=== PATIENT | female | born 1985 | race Caucasian/White ===

== ENCOUNTER 2017-07-24 14:33 | Observation (INO) | payer BC, OTHER ==
[~2017-07-24 14:33] MED LIST: ALPR0.5T PO
[2017-07-24 15:59] LABS: APPEARANCE,URINE Clear (CLEAR); BILIRUBIN,URINE Negative (NEGATIVE); COLOR,URINE Yellow (YELLOW); GLUCOSE, URINE (UA) Negative (NEGATIVE); KETONES,URINE Negative (NEGATIVE); LEUKOCYTE ESTERASE ,URINE Negative (NEGATIVE); NITRATE,URINE Negative (NEGATIVE); OCCULT BLOOD,URINE Negative (NEGATIVE); PH,URINE 7.5 (5.0-8.0); PROTEIN,URINE Negative (NEGATIVE); UROBILINOGEN,URINE 0.2 mg/dL (0.2-1.0)
== END 2017-07-24 16:40 | disposition home or self-care (01) ==
LOC: EDH 14:33 → LDH 15:10
PROVIDERS: ADMIT Obstetrics & Gynecology; ATTEND Obstetrics & Gynecology
DX: O42.913 Preterm premature rupture of membranes, unspecified as to length of time between rupture and onset of labor, third trimester (principal); Z3A.30 30 weeks gestation of pregnancy
CPT/HCPCS: 81003; 82120; 99285; G0378

== ENCOUNTER 2017-08-27 20:24 | Observation (INO) | payer BC ==
[~2017-08-27] VITALS: Ht 149.9 cm; Wt 91.2 kg
[2017-08-27] MEDS ORDERED: PREN-196 PO (20:38)
[2017-08-27] MEDS ORDERED: LACTATED RINGERS 1000ML 1,000 ML IV SCH (20:45)
[2017-08-27 20:59] LABS: APPEARANCE,URINE Clear (CLEAR); BILIRUBIN,URINE Negative (NEGATIVE); COLOR,URINE Yellow (YELLOW); GLUCOSE, URINE (UA) Negative (NEGATIVE); KETONES,URINE Negative (NEGATIVE); LEUKOCYTE ESTERASE ,URINE Trace (NEGATIVE); NITRATE,URINE Negative (NEGATIVE); OCCULT BLOOD,URINE Negative (NEGATIVE); PH,URINE 6.5 (5.0-8.0); PROTEIN,URINE Negative (NEGATIVE); UROBILINOGEN,URINE 0.2 mg/dL (0.2-1.0)
[2017-08-27 21:09] LABS: BACTERIA,URINE Few /HPF (None Seen); RBC,URINE 0-1 /HPF (0-1); SQUAMOUS EPITHELIAL CELL,UR 0-2 /HPF (0-2); WBC,URINE 0-1 /HPF (0-1)
[2017-08-27] MEDS ORDERED: AUD IH (21:15)
[2017-08-27 21:41] LABS: AMPHET/METH SCREEN,URINE NEGATIVE (NEGATIVE); BARBITURATE SCREEN, URINE NEGATIVE (NEGATIVE); BENZODIAZEPINES SCREEN,URINE NEGATIVE (NEGATIVE); CANNABINOID SCREEN,URINE NEGATIVE (NEGATIVE); COCAINE SCREEN,URINE NEGATIVE (NEGATIVE); OPIATE SCREEN,URINE NEGATIVE (NEGATIVE); PHENCYCLIDINE SCREEN,URINE NEGATIVE (NEGATIVE)
== END 2017-08-27 22:50 | disposition home or self-care (01) ==
LOC: EDH 20:24 → LDH 20:25
PROVIDERS: ADMIT Obstetrics & Gynecology; ATTEND Obstetrics & Gynecology
DX: O62.9 Abnormality of forces of labor, unspecified (principal); Z3A.35 35 weeks gestation of pregnancy
CPT/HCPCS: 80305; 81001; 96360; 96361; 99285; G0378 ×2; J7120

== ENCOUNTER 2021-10-14 00:13 | Emergency (ER) | payer OTHER ==
[~2021-10-14] VITALS: Ht 149.9 cm; Wt 51.7 kg
[~2021-10-14 00:13] MED LIST changes: +AUD IH; +PREN-196 PO
[2021-10-14 00:36] VITALS: BP 116/82
[2021-10-14] MEDS ORDERED: MUPI22OI2 TP (00:55)
[2021-10-14] MEDS ORDERED: MUPIROCIN OINTMENT 22 GM TUBE TP SCH (01:00)
[2021-10-14] MEDS ORDERED: ACETAMINOPHEN 500 MG TABLET PO ONE (01:00)
[2021-10-14] MEDS ORDERED: LORAZEPAM 1 MG TABLET PO ONE (01:00)
[2021-10-14] MEDS ORDERED: ACETAMINOPHEN 500 MG TABLET ONE (01:02)
== END 2021-10-14 01:56 | disposition home or self-care (01) ==
LOC: EDH 00:13
DX: T63.301A Toxic effect of unspecified spider venom, accidental (unintentional), initial encounter (principal); F41.9 Anxiety disorder, unspecified; J45.909 Unspecified asthma, uncomplicated; F17.200 Nicotine dependence, unspecified, uncomplicated; Z88.6 Allergy status to analgesic agent; Y92.89 Other specified places as the place of occurrence of the external cause

== ENCOUNTER 2022-04-02 22:26 | Emergency (ER) | payer OTHER ==
[~2022-04-02] VITALS: Ht 149.9 cm; Wt 52.2 kg
[~2022-04-02 22:26] MED LIST changes: +MUPI22OI2 TP
[2022-04-02 22:28] VITALS: BP 105/68
[2022-04-02] MEDS ORDERED: PERM60CR4 TP (23:24)
[2022-04-03] MEDS ORDERED: ACET-66 PO (09:33)
== END 2022-04-02 23:42 | disposition home or self-care (01) ==
LOC: EDH 22:26
DX: B86 Scabies (principal); J45.909 Unspecified asthma, uncomplicated; F17.200 Nicotine dependence, unspecified, uncomplicated; Z88.6 Allergy status to analgesic agent; Z98.890 Other specified postprocedural states; Z79.899 Other long term (current) drug therapy
CPT/HCPCS: 99282

== ENCOUNTER 2022-04-03 05:41 | Emergency (ER) | payer BC, OTHER ==
[~2022-04-03] VITALS: Ht 149.9 cm; Wt 54.4 kg
[~2022-04-03 05:41] MED LIST changes: +PERM60CR4 TP
[2022-04-03 06:54] LABS: AMPHET/METH SCREEN,URINE POSITIVE (NEGATIVE); BARBITURATE SCREEN, URINE NEGATIVE (NEGATIVE); BENZODIAZEPINES SCREEN,URINE NEGATIVE (NEGATIVE); CANNABINOID SCREEN,URINE NEGATIVE (NEGATIVE); COCAINE SCREEN,URINE POSITIVE (NEGATIVE); OPIATE SCREEN,URINE NEGATIVE (NEGATIVE); PHENCYCLIDINE SCREEN,URINE NEGATIVE (NEGATIVE)
[2022-04-03 06:57] LABS: BASOPHILS % (AUTO) 0.5 % (0.0-5.0); EOSINOPHILS % (AUTO) 4.9 % (0.0-8.0); HEMATOCRIT 36.1 % (36-48); LYMPHOCYTES % (AUTO) 29.2 % (21.0-51.0); MEAN CORPUSCULAR HEMOGLOBIN 30.2 pg (27.0-33.0); MEAN CORPUSCULAR HGB CONC 33.5 g/dL (32.0-36.0); NEUTROPHILS % (AUTO) 56.2 % (40.0-77.0); PLATELET COUNT (AUTO) 304 K/uL (130-400); RED BLOOD CELL COUNT(AUTO) 4.01 MIL/uL (4.00-5.50); RED CELL DISTRIBUTION WIDTH 12.7 % (11.0-15.5); WHITE BLOOD COUNT (AUTO) 9.6 K/uL (4.8-10.8)
[2022-04-03 07:05] VITALS: BP 126/76
[2022-04-03 07:16] LABS: ALANINE AMINOTRANSFERASE 16 U/L (12-78); ALBUMIN 3.7 g/dL (3.5-5.0); ASPARTATE AMINOTRANSFERASE 13 U/L (10-37); CARBON DIOXIDE 29 mmol/L (21-32); CHLORIDE 100 mmol/L (101-111); CREATININE 0.7 mg/dL (0.5-1.5); GLOMERULAR FILTR. RATE CALC 101 mL/min (>60); GLUCOSE,RANDOM 97 mg/dL (70-105); POTASSIUM 3.3 mmol/L (3.5-5.1); SODIUM SERUM 134 mmol/L (136-145); TOTAL PROTEIN, SERUM 6.9 g/dL (6.0-8.3); UREA NITROGEN, BLOOD 12 mg/dL (7-18)
[2022-04-03 07:55] LABS: ALCOHOL, BLOOD < 3 mg/dL (0-10)
[2022-04-03] MEDS ORDERED: KETOROLAC 60 MG VIAL (30MG/ML) IM ONE (08:00)
[2022-04-03] MEDS ORDERED: ACETAMINOPHEN 500 MG TABLET PO ONE (08:30)
[2022-04-03] MEDS ORDERED: ACET-66 PO (09:33)
== END 2022-04-03 09:55 | disposition home or self-care (01) ==
LOC: EDH 05:41
DX: F19.10 Other psychoactive substance abuse, uncomplicated (principal); R21 Rash and other nonspecific skin eruption; L29.9 Pruritus, unspecified; J45.909 Unspecified asthma, uncomplicated; F17.200 Nicotine dependence, unspecified, uncomplicated; Z88.6 Allergy status to analgesic agent; Z88.8 Allergy status to other drugs, medicaments and biological substances
CPT/HCPCS: 36415; 70220; 80053; 80305; 85025